=== PATIENT | male | born 1985 | race Caucasian/White ===

== ENCOUNTER 2016-11-22 19:48 | Emergency (ER) | payer OTHER | END 2016-11-22 20:03 | disposition home or self-care (01) | LOC: CED 19:48 | DX: K02.9 Dental caries, unspecified (principal); R00.0 Tachycardia, unspecified; F17.210 Nicotine dependence, cigarettes, uncomplicated | CPT/HCPCS: 99282 ==

== ENCOUNTER 2016-12-16 08:49 | Emergency (ER) | payer OTHER ==
--- NOTE | ~2016-12-16 | EKG ---
PATIENT: LAKSHMI CARMICHAEL UNIT #: [id number] Ventricular Rate: 102 BPM Atrial Rate: 102 BPM P-R Interval: 148 ms QRS Duration: 94 ms Q-T Interval: 338 ms QTC Calculation(Bezet): 440 ms P Norris: 50 degrees Calculated R Norris: 17 degrees Calculated T Norris: -14 degrees Diagnosis Line: Sinus tachycardia Diagnosis Line: Moderate voltage criteria for LVH, may be normal Diagnosis Line: variant Diagnosis Line: Inferior infarct , age undetermined Diagnosis Line: Abnormal ECG Diagnosis Line: When compared with ECG of 19-AUG-2016 08:29, Diagnosis Line: Inferior infarct is now Present Diagnosis Line: T wave inversion now evident in Inferior leads Diagnosis Line: Nonspecific T wave abnormality no longer evident Diagnosis Line: in Lateral leads Diagnosis Line: QT has shortened Diagnosis Line: Confirmed by KYUNG HANLEY MD ([id number]) on Diagnosis Line: 12/17/2016 8:37:05 AM INTERPRETING MD: TALON NASSAR
[2016-12-16 10:34] LABS: BASOPHIL# 0.1 X10e3 (0-0.3); BASOPHIL% 0.7 % (0-2.5); DIFF IND NO; EOSINOPHIL# 0.1 X10e3 (0-0.7); EOSINOPHIL% 0.9 % (0.0-7.0); HEMATOCRIT 42.8 % (38.0-50.0); HEMOGLOBIN 14.3 gm/dL (13.0-16.0); LYMPHOCYTE# 1.5 X10e3 (1.0-3.5); LYMPHOCYTE% 18.3 % (17.0-45.0); MEAN CELL VOLUME 96.4 FL (83-96); MEAN CORPUSCULAR HEMOGLOBIN 32.2 PG (28-34); MEAN CORPUSCULAR HGB CONC 33.4 g/dL (30-36); MEAN PLATELET VOLUME 7.5 FL (6.5-11.5); MONOCYTE# 0.8 X10e3 (0-1.0); MONOCYTE% 9.7 % (3.0-12.0); NEUTROPHIL# 5.7 X10e3 (1.5-7.1); NEUTROPHIL% 70.4 % (40-75); PLATELET COUNT 226 X10e3 (140-420); RED BLOOD COUNT 4.43 X10e (3.90-5.60); RED CELL DISTRIBUTION WIDTH 13.1 % (11.0-15.5); WHITE BLOOD COUNT 8.1 X10e3 (4.0-10.5)
[2016-12-16 11:02] LABS: ALBUMIN SERUM 4.2 g/dL (3.5-5.0); CALCIUM SERUM 8.8 mg/dL (8.4-10.2); GLOM FILT RATE Estimated 100.6 mL/min (>60); POTASSIUM 4.1 mmol/L (3.5-5.1); PROTEIN TOTAL SERUM 7.3 g/dL (6.0-8.3)
== END 2016-12-16 11:47 | disposition home or self-care (01) ==
LOC: CED 08:49
PROVIDERS: Nurse Practitioner
DX: S39.012A Strain of muscle, fascia and tendon of lower back, initial encounter (principal); R00.0 Tachycardia, unspecified; F41.9 Anxiety disorder, unspecified; F32.9 Major depressive disorder, single episode, unspecified; Z86.718 Personal history of other venous thrombosis and embolism; X50.9XXA Other and unspecified overexertion or strenuous movements or postures, initial encounter; Y92.9 Unspecified place or not applicable
CPT/HCPCS: 36415; 80053; 85025; 93005; 96360; 96372; 99284; J1885

== ENCOUNTER 2016-12-22 14:59 | Emergency (ER) | payer OTHER ==
[2016-12-22 16:50] LABS: BASOPHIL# 0.1 X10e3 (0-0.3); BASOPHIL% 0.7 % (0-2.5); EOSINOPHIL# 0.1 X10e3 (0-0.7); EOSINOPHIL% 1.9 % (0.0-7.0); HEMATOCRIT 40.2 % (38.0-50.0); HEMOGLOBIN 13.7 gm/dL (13.0-16.0); LYMPHOCYTE# 1.7 X10e3 (1.0-3.5); MEAN CELL VOLUME 94.9 FL (83-96); MEAN CORPUSCULAR HEMOGLOBIN 32.3 PG (28-34); MEAN PLATELET VOLUME 7.7 FL (6.5-11.5); MONOCYTE# 0.7 X10e3 (0-1.0); MONOCYTE% 9.4 % (3.0-12.0); NEUTROPHIL# 5.2 X10e3 (1.5-7.1); PLATELET COUNT 216 X10e3 (140-420); RED BLOOD COUNT 4.23 X10e (3.90-5.60); RED CELL DISTRIBUTION WIDTH 13.1 % (11.0-15.5); WHITE BLOOD COUNT 7.9 X10e3 (4.0-10.5)
[2016-12-22 16:59] LABS: DIFF IND NO
[2016-12-22 17:16] LABS: ALBUMIN SERUM 4.1 g/dL (3.5-5.0); ALKALINE PHOSPHATASE 55 U/L (32-92); ALT (SGPT) 22 U/L (10-40); AST (SGOT) 20 U/L (10-42); BILIRUBIN, DIRECT 0.1 mg/dL (0.0-0.2); BILIRUBIN,INDIRECT 0.8 mg/dL (0.0-0.9); BILIRUBIN,TOTAL 0.9 mg/dL (0.2-2.0); BLOOD UREA NITROGEN 11 mg/dL (9-23); BUN/CREATININE RATIO 12.22; CARBON DIOXIDE 24 mmol/L (22-31); CHLORIDE 106 mmol/L (100-111); CREATININE SERUM 0.9 mg/dL (0.6-1.4); GLOM FILT RATE Estimated 114.2 mL/min (>60); GLUCOSE FASTING 102 mg/dL (70-110); POTASSIUM 3.8 mmol/L (3.5-5.1); PROTEIN TOTAL SERUM 7.6 g/dL (6.0-8.3); SODIUM 138 mmol/L (135-145)
[2016-12-22 17:26] LABS: ALCOHOL BLOOD <5 mg/dL (0)
[2016-12-22 18:59] LABS: AMPHETAMINE POS (NEG); BARBITURATES NEG (NEG); BENZODIAZEPINES POS (NEG); COCAINE NEG (NEG); MARIJUANA NEG (NEG); OPIATES POS (NEG); TRICYCLIC ANTIDEPRESSANTS NEG (NEG); U METHADONE NEG (NEG)
== END 2016-12-22 21:15 | disposition home or self-care (01) ==
LOC: CED 14:59
PROVIDERS: Emergency Medicine
DX: F23 Brief psychotic disorder (principal); F17.200 Nicotine dependence, unspecified, uncomplicated
CPT/HCPCS: 80048; 80076; 80307; 85025; 96372; 99285; G0480; J3486

== ENCOUNTER 2016-12-22 20:00 | Inpatient (IN) | payer OTHER ==
--- NOTE | ~2016-12-22 | PN ---
Unit #: [id number] #: [id number] Patient: LAKSHMI CARMICHAEL [id number] [facility] [address] [place] [address] [id number] MR#: [id number] NAME: LAKSHMI CARMICHAEL ROOM: P254 Age: 31 Sex: M Admission Date: 12/22/2016 : 1985 Attending Physician: Mallory Jacobs M.D. Admitting Physician: Joanne Santiago NOTES SUBJECTIVE Mr. Carmichael is a 31-year-old white male who was seen today and chart was reviewed and case was discussed with the staff. He has been anxious and withdrawn and seclusive to himself. Meanwhile, he has been cooperative with the treatment recommendations and has been taking the medications and tolerating them fairly well with no reported side effects. MENTAL STATUS EXAMINATION A young white male, who was casually dressed with fair personal hygiene, appears to be in no acute distress or discomfort. He was awake and alert on interaction with intact orientation. His mood was anxious with congruent affect. He denies any suicidal or homicidal ideations. His insight and judgement remain slightly impaired. TREATMENT PLAN We will continue him on his current medications and treatment protocol. We will monitor his response to medications and make further adjustments as needed. We will continue to follow up. Dictated by... Joanne Santiago/mary TD: 12/30/2016 20:50 JOB #: [id number] SYLWIA STEPHENSON NOTES Page 1 of 1 X Mallory Jacobs MD PROGRESS NOTE
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
--- NOTE | ~2016-12-22 | PN ---
Unit #: [id number] #: [id number] Patient: LAKSHMI PITT [id number] [facility] [address] [place] [address] [id number] MR#: [id number] NAME: LAKSHMI PITT ROOM: P254 Age: 31 Sex: M Admission Date: 12/22/2016 : 1985 Attending Physician: Mallory Jacobs M.D. Admitting Physician: Mallory Jacobs M.D. Primary Care Physician: Norah Doctor Not In System [facility] PROGRESS NOTES DATE OF SERVICE: 12/30/2016 SUBJECTIVE Mr. Pitt is a 31-year-old white male with mood disorder and psychosis, who was seen today and chart was reviewed and the case was discussed with the staff. He has been anxious and withdrawn and rather seclusive to himself. Meanwhile, he has been cooperative with the treatment recommendations and has been taking the medications and tolerating them fairly well with no reported side effects. MENTAL STATUS EXAMINATION Young white male, who was casually dressed with fair personal hygiene, appears to be in no acute distress or discomfort. He was awake and alert on interaction with intact orientation. His mood was anxious with a congruent affect. He denies any suicidal or homicidal ideations and also denies any auditory or visual hallucinations. His insight and judgment remain slightly impaired. TREATMENT PLAN We will continue him on his current medications and treatment protocol and we will monitor his response to the medications and make further adjustments as needed. Dictated by... Joanne Santiago/mary TD: 12/30/2016 13:28 JOB #: [id number] [facility] PROGRESS NOTES Page 1 of 1 X Mallory Jacobs MD X PROGRESS NOTE
--- NOTE | ~2016-12-22 | HP ---
Unit #: [id number] #: [id number] Patient: SKINNY CARMICHAEL [id number] [place] [address] [id number] I MR#: [id number] NAME: SKINNY CARMICHAEL. ROOM: P254 Age: 31 Sex: M Admission Date: 12/22/2016 : 1985 Attending Physician: Mallory Jacobs M.D. Admitting Physician: Mallory Jacobs M.D. Primary Care Physician: Generic Doctor Not In System HISTORY AND PHYSICAL HISTORY OF PRESENT ILLNESS Skinny is a 31-year-old male admitted 12/22/[address] [place] [address] for suicidal ideation. PAST MEDICAL HISTORY Factor V Leiden PAST SURGICAL HISTORY None documented. SOCIAL HISTORY Smokes one pack of cigarettes daily, occasional beer use and occasional methamphetamine use. He is currently single living with his mother, aunt and two other roommates. FAMILY HISTORY Noncontributory. REVIEW OF SYSTEMS CONSTITUTIONAL: No fever or chills. HEENT: Denies any sore throat, ear pain or runny nose. CARDIOVASCULAR: Denies chest pain, irregular heart rhythm or palpitations. CHEST: Denies shortness of breath or cough. No hemoptysis. GASTROINTESTINAL: Denies nausea, vomiting, diarrhea or chronic constipation. ENDOCRINE: Denies history of increased thirst or urination. No recent significant weight loss or gain. GENITOURINARY: Denies dysuria, frequency, or hematuria. SKIN: Denies any rashes. HEMATOLOGIC: Denies history of increased bleeding or bruising. MUSCULOSKELETAL: Denies any hot, swollen joints. No generalized muscle pain. NEUROLOGIC: Denies problems with vision or speech. No frequent, severe headaches. No numbness, tingling or weakness in any extremities. Denies loss of bladder or bowel control. CURRENT MEDICATION Risperdal. ALLERGIES No known drug allergies. PHYSICAL EXAMINATION Unit #: [id number] #: [id number] Patient: SKINNY CARMICHAEL GENERAL: Alert, oriented, in no acute distress. VITAL SIGNS: Blood pressure 138/80, heart rate 114, respirations 20, temperature 98.6. HEIGHT: 6 foot 0 inches. WEIGHT: 220 pounds. SKIN: Warm and dry without rash or lesion. HEENT: Normocephalic. TMs not viewed. Oral and nasal passages clear. Conjunctivae clear. PERRLA. EOMs intact. NECK: Supple without lymphadenopathy or thyromegaly. HEART: Regular rate and rhythm without murmur. LUNGS: Clear. ABDOMEN: Soft, nontender, without masses or hepatosplenomegaly. : Not done. EXTREMITIES: No evidence of cyanosis, clubbing or edema. Moves all without focal deficit. NEUROLOGICAL: Grossly within normal limits. Cranial Nerves: II: Visual serrato are intact. III, IV AND : Extraocular movements are intact. Pupils are equal, round and reactive to light. V: Facial sensation is grossly normal. VII: Facial movements and expression are normal. VIII: Auditory acuity grossly intact. IX, X: Uvula is midline. Phonation is normal. XI: Patient shrugs shoulders and turns head normally. XII: Tongue protrudes in the midline. Sensory and Motor Function: Sensory and motor sensation is grossly normal. Motor: moves all extremities well. Coordination: Gait is normal. Deep Tendon Reflexes: Intact. IMPRESSION 1. Psychiatric admission. 2. Factor V Leiden. RECOMMENDATIONS Psychiatric, per psychiatrist. MEDICAL: I see no contraindications to participating in facility's activities. MEDICAL PROGNOSIS Good. MEDICAL CONDITION Stable. Dictated by... Violeta New/panfilo TD: 12/24/2016 02:57 JOB #: [id number] Unit #: [id number] #: [id number] Patient: SKINNY CARMICHAEL HISTORY AND PHYSICAL Page 1 of 1 X JENNIFER DUKES APRN X HISTORY AND PHYSICAL
--- NOTE | ~2016-12-22 | DS ---
Unit #: [id number] #: [id number] Patient: [facility] [id number] [facility] [address] [place] [address] [id number] I MR#: [id number] NAME: LAKSHMI CARMICHAEL ROOM: P254 Age: 31 Sex: M Admission Date: 12/22/2016 : 1985 Discharge Date: 01/03/2017 Attending Physician: Mallory Jacobs M.D. DISCHARGE SUMMARY IDENTIFYING DATA Mr. Badillo is a 31-year-old single white male who is a resident of [place], [place] and is known to us from previous encounter and was self-referred to the hospital on a voluntary basis. DISCHARGE DIAGNOSES Psychiatric: Schizoaffective disorder, bipolar type, most recent episode depressed, recurrent, moderate, with psychosis; methamphetamine dependence, moderate. Medical: Factor V deficiency. Stressors: Mild psychosocial stressors. HISTORY OF PRESENT ILLNESS Please see initial psychiatric evaluation for details. PAST PSYCHIATRIC HISTORY Please see initial psychiatric evaluation for details. PAST MEDICAL HISTORY Please see initial psychiatric evaluation for details. HOSPITAL COURSE The patient was admitted to the adult psychiatric unit at [facility] emily Chavarria and was oriented to the hospital environment. Routine p.r.n. medications were initiated, and he was started back on his home medications. However, he was seen to be acutely psychotic, very withdrawn, seclusive, and isolated to himself. Reporting increasing depression and constantly reporting hallucinations and suicidal ideations and in addition to his regular medications, we had to give him p.r.n. Thorazine quite often to cut down his psychosis and agitation and Risperdal then was increased to 3 mg b.i.d. with a total of 6 mg a day and he was closely monitored. He was polite and pleasant for the most part, however, was seen to be cooperative with treatment recommendation as he was taking the medications and was tolerating them fairly well, though was not seen to be socializing or interacting very much and his personal hygiene was compromised as well. However, he was able to show a decent therapeutic response to the medications with improvement in his depression and psychosis and was denying any suicidal ideations, intent, or plan and was not seen to be a danger to self or anyone else, and as such, it was decided that he will be discharged home and will continue treatment on an outpatient basis. DISCHARGE MEDICATIONS Wellbutrin XL 300 mg in the morning for depression and Risperdal 3 mg Unit #: [id number] #: [id number] Patient: LAKSHMI CARMICHAEL Gabriel singh for psychosis. DISCHARGE CONDITION Stable. PROGNOSIS Fair. Dictated by... Joanne Santiago/mary TD: 01/03/2017 07:05 JOB #: [id number] DISCHARGE SUMMARY Page 1 of 1 X Mallory Jacobs MD X DISCHARGE SUMMARY
--- NOTE | ~2016-12-22 | PN ---
Unit #: [id number] #: [id number] Patient: LAKSHMI PITT [id number] [facility] [address] [place] [address] [id number] MR#: [id number] NAME: LAKSHMI PITT ROOM: P254 Age: 31 Sex: M Admission Date: 12/22/2016 : 1985 Attending Physician: Mallory Jacobs M.D. Admitting Physician: Mallory Jacobs M.D. Primary Care Physician: Norah Doctor Not In System [facility] PROGRESS NOTES DATE OF SERVICE 12/28/2016 DISCUSSION Mr. Pitt is a 31-year-old white male who was seen today. Chart was reviewed and case was discussed with the staff. He has been anxious, withdrawn, and rather seclusive to himself. Meanwhile, he has been cooperative with the treatment recommendations and has been taking the medications and tolerating them fairly well with no reported side effects. MENTAL STATUS EXAMINATION Young white male who is casually dressed with fair personal hygiene, appears to be in no acute distress or discomfort. The patient was awake and alert with intact orientation. His mood is anxious with congruent affect. He denies any suicidal or homicidal ideations. His insight and judgment remain slightly impaired. TREATMENT PLAN 1. We will continue him on his current treatment protocol. We will monitor his response and make further adjustments as needed. 2. We will continue to follow up. Dictated by... Mallory Jacobs M.D. IAA/bzg TD: 01/01/2017 15:06 JOB #: [id number] [facility] PROGRESS NOTES Page 1 of 1 X Mallory Jacobs MD PROGRESS NOTE
--- NOTE | ~2016-12-22 | PN ---
Unit #: [id number] #: [id number] Patient: LAKSHMI CARMICHAEL [id number] [facility] [address] [place] [address] [id number] I MR#: [id number] NAME: LAKSHMI CARMICHAEL ROOM: P254 Age: 31 Sex: M Admission Date: 12/22/2016 : 1985 Attending Physician: Mallory Jacobs M.D. Admitting Physician: Joanne Santiago NOTES DATE OF SERVICE: 12/27/2016 SUBJECTIVE Mr. Carmichael is a 31-year-old white male who was seen today and chart was reviewed, and case was discussed with the staff who reports the patient has been seclusive to himself. When approached, the patient reports persistent paranoia, anxiety, and delusional behavior. Meanwhile, he has been taking the medications and tolerating them fairly well with no reported side effects. MENTAL STATUS EXAMINATION Young white male who was casually dressed with fair personal hygiene, appears to be in no acute distress or discomfort. He was awake and alert on interaction with intact orientation. His mood was anxious with a congruent affect. He denies any suicidal or homicidal ideations, and also denies any auditory or visual hallucinations. His insight and judgment remain slightly impaired. TREATMENT PLAN 1. We will continue him on his current medications and treatment protocol. We will monitor his response to medications and make further adjustments as needed. We will recommend increasing the Risperdal to 3 mg twice a day. 2. We will continue to follow up. Dictated by... Joanne Santiago/mary TD: 12/28/2016 13:25 JOB #: [id number] Unit #: [id number] #: [id number] Patient: LAKSHMI CARMICHAEL SYLWIA STEPHENSON NOTES Page 1 of 1 X Mallory Jacobs MD PROGRESS NOTE
--- NOTE | ~2016-12-22 | PN ---
Unit #: [id number] #: [id number] Patient: LAKSHMI PITT [id number] [facility] [address] [place] [address] [id number] MR#: [id number] NAME: LAKSHMI PITT ROOM: P254 Age: 31 Sex: M Admission Date: 12/22/2016 : 1985 Attending Physician: Mallory Jacobs M.D. Admitting Physician: Mallory Jacobs M.D. Primary Care Physician: Norah Doctor Not In System [facility] PROGRESS NOTES DATE 12/25/2016 DISCUSSION Mr. Pitt is a 31-year-old, white male who was seen today and chart was reviewed and case was discussed with the staff. He has been anxious, withdrawn though has not shown any agitation, irritability and he has been cooperative with treatment recommendations. He has been taking medications and tolerating them fairly well with no reported side effects. MENTAL STATUS EXAM Young white male who was casually dressed with fair personal hygiene, appears to be in no acute distress or discomfort. He was awake and alert on interaction with intact orientation. His mood was anxious with congruent affect. His speech was slow and restricted in content. His thought processes were disorganized with some looseness of associations and flight of ideas and paranoid ideations and delusional behavior. His insight and judgement remains significantly impaired. TREATMENT PLAN 1. We will continue him on his current medications and treatment protocol. We will monitor his response to the medication and make further adjustments as needed. 2. We will continue to follow up. Dictated by... Joanne Santiago/panfilo TD: 12/25/2016 22:47 JOB #: [id number] Unit #: [id number] #: [id number] Patient: LAKSHMI PITTOPAL PROGRESS NOTES Page 1 of 1 X Mallory Jacobs MD PROGRESS NOTE
--- NOTE | ~2016-12-22 | PN ---
Unit #: [id number] #: [id number] Patient: LAKSHMI CARMICHAEL [id number] [facility] [address] [place] [address] [id number] MR#: [id number] NAME: LAKSHMI CARMICHAEL ROOM: P254 Age: 31 Sex: M Admission Date: 12/22/2016 : 1985 Attending Physician: Mallory Jacobs M.D. Admitting Physician: Mallory Jacobs M.D. Primary Care Physician: Generic Doctor Not In System [facility] PROGRESS NOTES DATE OF SERVICE: 12/24/2016 SUBJECTIVE The patient is a 31-year-old white male with mood disorder and psychosis, who was seen today and chart was reviewed, and case was discussed with the staff. He remains anxious, agitated, irritable, aggressive, and has been reporting some auditory hallucinations and p.r.n. Thorazine has been given though his Risperdal has been initiated as well. MENTAL STATUS EXAMINATION Young white male, who was casually dressed with fair personal hygiene, appears to be in no acute distress or discomfort. He was awake and alert on interaction with intact orientation. His mood was anxious with a congruent affect, but denies any suicidal or homicidal ideations and also denies any auditory or visual hallucinations. His insight and judgment remain slightly impaired. TREATMENT PLAN 1. We will continue on his medications and treatment protocol. We will monitor his response to medications and make further adjustments as needed. 2. We will continue to follow up. Dictated by... Joanne Santiago/mary TD: 12/24/2016 12:01 JOB #: [id number] [facility] PROGRESS NOTES Page 1 of 1 X Mallory Jacobs MD PROGRESS NOTE
--- NOTE | ~2016-12-22 | PN ---
Unit #: [id number] #: [id number] Patient: LAKSHMI PITT [id number] [facility] [address] [place] [address] [id number] I MR#: [id number] NAME: LAKSHMI PITT ROOM: P254 Age: 31 Sex: M Admission Date: 12/22/2016 : 1985 Attending Physician: Mallory Jacobs M.D. Admitting Physician: Mallory Jacobs M.D. Primary Care Physician: Generic Doctor Not In System [facility] PROGRESS NOTES DATE OF SERVICE 01/01/2017 DISCUSSION Mr. Pitt is a 31-year-old white male with mood disorder and psychosis who was seen today. Chart was reviewed and case was discussed with the staff. He has been anxious, withdrawn, and has not shown any agitation or irritability and has been cooperative with the treatment recommendations and has been taking the medications and tolerating them fairly well. MENTAL STATUS EXAMINATION Young white male who is casually dressed with fair personal hygiene, appears to be in no acute distress or discomfort. He was awake and alert on interaction with intact orientation. His mood is anxious with congruent affect. He denies any suicidal or homicidal ideations. His insight and judgment remain slightly impaired. TREATMENT PLAN 1. We will continue him on his current treatment protocol. We will monitor his response to the medications and make further adjustments as needed. 2. We will continue to follow up. Dictated by... Mallory Jacobs M.D. IAA/bzg TD: 01/02/2017 07:31 JOB #: [id number] [facility] PROGRESS NOTES Page 1 of 1 X Mallory Jacobs MD PROGRESS NOTE
--- NOTE | ~2016-12-22 | PN ---
Unit #: [id number] #: [id number] Patient: LAKSHMI PITT [id number] [facility] [address] [place] [address] [id number] I MR#: [id number] NAME: LAKSHMI PITT ROOM: P254 Age: 31 Sex: M Admission Date: 12/22/2016 : 1985 Attending Physician: Mallory Jacobs M.D. Admitting Physician: Mallory Jacobs M.D. Primary Care Physician: Norah Doctor Not In System [facility] PROGRESS NOTES DATE OF SERVICE 12/26/2016 DISCUSSION Mr. Pitt is a 31-year-old white male who was seen today. Chart was reviewed and case was discussed with the staff. He has been anxious, withdrawn, irritable, impulsive, agitated, and seclusive to himself. Reports persistent depressive symptom. Meanwhile, he has been taking the medications and tolerating them fairly well. MENTAL STATUS EXAMINATION Young white male who is casually dressed with fair personal hygiene, appears to be in no acute distress or discomfort. The patient was awake and alert on interaction with intact orientation. His mood is anxious with congruent affect. He reports having suicidal ideations as well as auditory hallucinations. His insight and judgment remain significantly impaired. TREATMENT PLAN 1. We will continue him on his current treatment protocol. We will monitor his response to the medications and make further adjustments as needed. 2. We will continue to follow up. Dictated by... Mallory Jacobs M.D. IAA/bzg TD: 12/27/2016 11:52 JOB #: [id number] Unit #: [id number] #: [id number] Patient: LAKSHMI PITT SYLWIA PROGRESS NOTES Page 1 of 1 X Mallory Jacobs MD PROGRESS NOTE
--- NOTE | ~2016-12-22 | PN ---
Unit #: [id number] #: [id number] Patient: LAKSHMI PITT [id number] [facility] [address] [place] [address] [id number] I MR#: [id number] NAME: LAKSHMI PITT ROOM: P254 Age: 31 Sex: M Admission Date: 12/22/2016 : 1985 Attending Physician: Mallory Jacobs M.D. Admitting Physician: Mallory Jacobs M.D. Primary Care Physician: Norah Doctor Not In System [facility] PROGRESS NOTES DATE 01/02/2017 DISCUSSION Mr. Pitt is a 31-year-old, white man who was seen today and chart was reviewed and case was discussed with the staff. He has been anxious, withdrawn though has not shown any agitation, irritability and he has been cooperative with the treatment recommendations. He has been taking the medication and tolerating them fairly well with no reported side effects. MENTAL STATUS EXAM Young white male who was casually dressed with fair personal hygiene, appears to be in no acute distress or discomfort. He was awake and alert on interaction with intact orientation. His mood was anxious with congruent affect. He denies any suicidal or homicidal ideation. Also, denies any auditory or visual hallucinations. His insight and judgement remains slightly impaired. TREATMENT PLAN 1. We will continue him on his current medications and treatment protocol. We will monitor his response to the medication and make further adjustments as needed. 2. We will continue to follow up. Dictated by... Joanne Santiago/panfilo TD: 01/03/2017 02:35 JOB #: [id number] Unit #: [id number] #: [id number] Patient: LAKSHMI PITT PROGRESS NOTES Page 1 of 1 X Mallory Jacobs MD PROGRESS NOTE
--- NOTE | ~2016-12-22 | PN ---
Unit #: [id number] #: [id number] Patient: LAKSHMI PITT [id number] [facility] [address] [place] [address] [id number] I MR#: [id number] NAME: LAKSHMI PITT ROOM: P254 Age: 31 Sex: M Admission Date: 12/22/2016 : 1985 Attending Physician: Mallory Jacobs M.D. Admitting Physician: Mallory Jacobs M.D. Primary Care Physician: Norah Doctor Not In System [facility] PROGRESS NOTES DATE OF SERVICE 12/28/2016 DISCUSSION Mr. Pitt is a 31-year-old white male who was seen today. Chart was reviewed and case was discussed with the staff. He has been anxious, withdrawn, depressed, and seclusive to himself and reports not feeling safe and still having depression, anxiety, suicidal thoughts and auditory hallucinations. His medications were adjusted yesterday as he has been taking the medications regularly and is tolerating them fairly well but has not been able to show a therapeutic response. MENTAL STATUS EXAMINATION Young white male who is casually dressed with fair personal hygiene, appears to be in no acute distress or discomfort. The patient was awake and alert with impaired attention and concentration. His mood is anxious with congruent affect. His speech is slow and restricted in content. He denies any suicidal or homicidal ideations and also denies any auditory or visual hallucinations. His insight and judgment remain slightly impaired. TREATMENT PLAN 1. We will continue him on his current treatment protocol. We will monitor his response and make further adjustments as needed. 2. We will continue to follow up. Dictated by... Joanne Santiago/travisg TD: 12/29/2016 08:42 JOB #: [id number] Unit #: [id number] #: [id number] Patient: LAKSHMI PITT PROGRESS NOTES Page 1 of 1 X Mallory Jacobs MD PROGRESS NOTE
== END 2017-01-03 11:30 | disposition home or self-care (01) | DRG 885 ==
LOC: P2L 22:03
DX: F25.0 Schizoaffective disorder, bipolar type (principal); D68.51 Activated protein C resistance; F31.32 Bipolar disorder, current episode depressed, moderate; F29 Unspecified psychosis not due to a substance or known physiological condition; F15.20 Other stimulant dependence, uncomplicated; R45.851 Suicidal ideations; F17.210 Nicotine dependence, cigarettes, uncomplicated

== ENCOUNTER 2017-01-11 10:38 | Inpatient (IN) | payer OTHER ==
--- NOTE | ~2017-01-11 | DS ---
Unit #: [id number] #: [id number] Patient: LAKSHMI CARMICHAEL [id number] [address] [address] [id number] I MR#: [id number] NAME: LAKSHMI CARMICHAEL ROOM: [facility] Age: 31 Sex: M Admission Date: 01/11/2017 : 1985 Discharge Date: Attending Physician: Sayra James M.D. Primary Care Physician: No Primary Care Physician DISCHARGE SUMMARY DISCHARGE DIAGNOSES 1. Intentional Risperdal overdose. 2. Suicidal ideation. 3. Hypotension secondary to overdose. 4. Hypokalemia. 5. History of Factor V Leiden deficiency with a history of pulmonary embolism, not on any anticoagulation. 6. Substance abuse. 7. Smoking. 8. Schizophrenia. 9. Bipolar. 10. History of suicidal ideation and overdose in the past. CONSULTATION Dr. Bernard. PROCEDURES None. LAB DATA CAT scan of the head is negative. Sodium 139, potassium 3.6, creatinine 0.9. Liver enzymes normal. WBC 8.5, hemoglobin 14.0, platelets 201. Blood cultures negative. Magnesium 2.2. Urinalysis shows RBC 5-10, no infection. Urine tox screen positive for benzodiazepines and opiates. ALLERGIES None. DISCHARGE MEDICATIONS None. HOSPITALIZATION COURSE 31-year-old admitted because of Risperdal overdose. Risperdal overdose, intentional, with suicidal ideation with history of bipolar and schizophrenia: Patient was kept on 72 hour hold with a Unit #: [id number] #: [id number] Patient: LAKSHMI CARMICHAEL sitter. Currently, patient is alert and oriented x3. Patient received charcoal in ER and IV fluids. Currently stable. Medically stable to go to [facility]. Patient will be seen by [facility] staff and transferred to [facility]. Hypotension secondary to overdose: Patient received IV fluids, currently resolved. Both eye deviation to the right, most likely psychiatric related: CAT scan of the head is negative. Patient is moving eyes normally if distracted. History of bipolar and schizophrenia: Treatment as per Dr. Bernard. Hold off on Risperdal for now because overdose. Regular diet. Patient medically stable to go to [facility]. DC to [facility]. Dictated by... Joanne Long TD: 01/13/2017 12:15 JOB #: [id number] DISCHARGE SUMMARY Page 1 of 1 X Sayra James MD X DISCHARGE SUMMARY
--- NOTE | ~2017-01-11 | CO ---
Unit #: [id number] #: [id number] Patient: LAKSHMI CARMICHAEL [id number] [address] [place], [place] [address] [id number] I MR#: [id number] NAME: LAKSHMI CARMICHAEL ROOM: [facility] Age: 31 Sex: M Admission Date: 01/11/2017 : 1985 Attending Physician: Bree Bernabe M.D. Primary Care Physician: Primary Care Physician No Consultation Date: 01/12/2017 CONSULTATION REPORT INDICATION FOR CONSULT Overdose. HISTORY OF PRESENT ILLNESS Mr. Richard is a 31-year-old schizophrenic who presented with an intentional overdose. He self admits that this was an intentional suicide attempt, stating he took 60 Risperdal and nothing else. He was admitted to the ICU for close observation and this morning, he is awake and alert with no distress. He denies any shortness of breath or pain anywhere. PAST MEDICAL HISTORY Positive for factor V Leiden deficiency, PE, schizophrenia and substance abuse. Has had past admissions for suicidal ideation and overdose. SOCIAL HISTORY Positive for tobacco abuse. ALLERGIES No known drug allergies. HOME MEDICATIONS Include Risperdal, Lexapro and gabapentin. REVIEW OF SYSTEMS Denies any headache. Denies any visual complaints. Denies any changes in hearing. Denies any sore throat. Denies any adenopathy. Denies any chest pain. Denies any shortness of breath. Denies any dysuria. Denies any diarrhea. Denies any abdominal pain. Denies any bleeding. Denies any muscle weakness. Denies any swelling. PHYSICAL EXAMINATION VITAL SIGNS: Temperature 97.8, pulse 76, respirations 14, blood pressure 127/98, sats 97% on room air. GENERAL: The patient is awake and alert, no acute distress. HEENT: Pupils are equal and reactive to light stimulus. Extraocular motion intact. Oral mucosa pink and moist without lesion. NECK: Trachea midline. No thyromegaly. No cervical or supraclavicular adenopathy. LUNGS: Clear to auscultation bilaterally without wheezes, rhonchi, or rales. CARDIAC: Regular rate and rhythm. S1 and S2 are auscultated without murmur. ABDOMEN: Soft, nontender, nondistended. Positive bowel sounds. No hepatomegaly. Unit #: [id number] #: [id number] Patient: LAKSHMI CARMICHAEL EXTREMITIES: Moves all 4 extremities. Good strength and tone. No cyanosis, clubbing, or edema. Distal pulses are intact. Positive cap refill. DIAGNOSTIC STUDIES LABORATORY RESULTS: His CMP this morning is within normal limits with the exception of BUN of 7 and calcium of 8.3. CBC; white count 7.9, hematocrit 41, platelets 171. IMAGING STUDIES: Chest x-ray did show no acute disease. IMPRESSION 1. Intentional overdose. 2. Suicidal ideation. Recommend psych eval to consider indication for inpatient psychiatric management for ongoing care. Consider transfer to the floor for further observation and management. Follow and replace electrolytes per ICU protocol. Dictated by... Saravanan Barr M.D. JAVIER/mary TD: 01/12/2017 07:56 JOB #: [id number] CONSULTATION REPORT Page 1 of 1 X Saravanan Barr MD X CONSULTATION REPORT
--- NOTE | ~2017-01-11 | CT71 ---
[facility] A Service [facility] RADIOLOGY TEXT RESULTS PATIENT: LAKSHMI CARMICHAEL LOCATION: [facility] 317-01 : [birth year] UNIT #: [id number] AGE: [address]: Sayra James MD SEX: M ORDER DR: [id number] [facility]. [place], [place] [address] [id number] I MR#: [id number] Acc #: [id number] NAME: LAKSHMI CARMICHAEL : 1985 SEX: M STUDY DATE/TIME: 01/12/2017 10:30 UNIT: [address] ROOM: [facility] STUDY DESCRIPTION: CT Head Wo Contrast Attending Physician: Bree Bernabe M.D. Ordering Physician: Sayra James M.D. Primary Care Physician: No Primary Care Physician MEDICAL IMAGING REPORT This report is preliminary unless electronic signature is present EXAM CT brain without contrast media. HISTORY SUPPLIED Drug overdose on 01/21/17. Eye deviation for 1 hour. TECHNIQUE Axial imaging of the brain was performed without contrast media. This CT exam was performed with one or more of the following radiation dose reduction techniques: automatic exposure control, adjustment of mA and/or kV according to patient size, and iterative reconstruction. FINDINGS Ventricular size and configuration is normal. No intra or extraaxial mass lesions, fluid collections or mass effect are seen. No focal areas of low attenuation or evidence of acute hemorrhage. There is evidence of chronic ethmoid mucosal disease. CONCLUSION 1. Negative noncontrast CT of the brain. 2. Chronic ethmoid mucosal disease. Dictated by... Karson James M.D. THIS IS AN ELECTRONICALLY VERIFIED REPORT Karson James M.D. at 01/13/2017 9:17 AM Herminio TD: 01/12/2017 15:38 JOB #: [id number] [facility] A [facility] RADIOLOGY TEXT RESULTS PATIENT: LAKSHMI CARMICHAEL LOCATION: [facility] 317-01 [facility] [id number] : [birth year] UNIT #: [id number] AGE: [address]: Sayra James MD SEX: M ORDER DR: MEDICAL IMAGING REPORT Page 1 of 1 COPY
--- NOTE | ~2017-01-11 | CR72 ---
[facility] A Service of [facility] RADIOLOGY TEXT RESULTS PATIENT: LAKSHMI CARMICHAEL LOCATION: [facility] 317-01 : [birth year] UNIT #: [id number] AGE: [address]: Sayra James MD SEX: M ORDER DR: [id number] [facility] [address] [facility]. [place], [place] [address] [id number] I MR#: [id number] Acc #: [id number] NAME: LAKSHMI CARMICHAEL : 1985 SEX: M STUDY DATE/TIME: 01/11/2017 16:31 UNIT: [facility] ROOM: [id number] STUDY DESCRIPTION: CR Chest Single View Portable Attending Physician: Bree Bernabe M.D. Ordering Physician: Bree Bernabe M.D. Primary Care Physician: No Primary Care Physician MEDICAL IMAGING REPORT This report is preliminary unless electronic signature is present EXAM AP portable chest DATE: 01/11/2017 at 16:41 HISTORY 31-year-old male with cough. Overdose. Symptoms began 01/11/2017. COMPARISON AP portable chest 08/20/2016 FINDINGS Clear lungs. Normal heart size. No pleural effusion or pneumothorax. No acute osseous abnormality. IMPRESSION No acute cardiopulmonary findings. Dictated by... Brooklyn Allen M.D. THIS IS AN ELECTRONICALLY VERIFIED REPORT Brooklyn Allen M.D. at 01/14/2017 9:29 AM SACHIN/mirta TD: 01/11/2017 21:06 JOB #: [id number] MEDICAL IMAGING REPORT Page 1 of 1 COPY
--- NOTE | ~2017-01-11 | EKG ---
PATIENT: LAKSHMI CARMICHAEL UNIT #: [id number] Ventricular Rate: 151 BPM Atrial Rate: 151 BPM P-R Interval: 126 ms QRS Duration: 88 ms Q-T Interval: 328 ms QTC Calculation(Bezet): 519 ms P Troy: 65 degrees Calculated R Troy: 41 degrees Calculated T Troy: 68 degrees Diagnosis Line: Sinus tachycardia Diagnosis Line: Nonspecific T wave abnormality Diagnosis Line: Abnormal ECG Diagnosis Line: When compared with ECG of 16-DEC-2016 10:27, Diagnosis Line: Criteria for Inferior infarct are no longer Diagnosis Line: Present Diagnosis Line: T wave inversion no longer evident in Inferior Diagnosis Line: leads Diagnosis Line: Nonspecific T wave abnormality now evident in Diagnosis Line: Lateral leads Diagnosis Line: Confirmed by JULIO PAZ MD ([id number]) on 01/13/2017 Diagnosis Line: 4:25:07 PM INTERPRETING MD: BRANDI NASSAR
--- NOTE | ~2017-01-11 | HP ---
Unit #: [id number] #: [id number] Patient: LAKSHMI CARMICHAEL [id number] [address] [place], [place] [address] [id number] MR#: [id number] NAME: LAKSHMI CARMICHAEL ROOM: Age: 31 Sex: M Admission Date: 01/11/2017 : 1985 Attending Physician: Milvia Caraballo M.D. Primary Care Physician: No Primary Care Physician HISTORY AND PHYSICAL CHIEF COMPLAINT Overdose. HISTORY OF PRESENT ILLNESS The patient is a 31-year-old male with a past medical history of factor V Leiden deficiency, PE, schizophrenia and substance abuse. He presented to the emergency department for evaluation of the above. History is obtained from chart review and discussion with the emergency room staff. The patient provided some history as well. The patient apparently took 60 Risperdal tablets of unknown strength one hour prior to admission. He was having suicidal ideations and depression. Of note, the patient was hospitalized at [facility] 12/22/2016 through 01/03/2017 for suicidal ideation. Upon arrival in the emergency department the patient's initial pulse and blood pressures were 147 and 90/58 respectively. Oxygen saturation was 98% on room air. Tox screen positive for benzodiazepines and opiates. He was given 50 g of charcoal as well as 1 liter of normal saline and 4 mg of Zofran. Additionally he received 150 cc of magnesium citrate. The poison center was contacted and recommended admission due to long half-life of Risperdal. Signs and symptoms include elevated heart rate, hypotension, prolonged QTC, seizures, respiratory depression. He is being admitted to [facility] for evaluation and further treatment. PAST MEDICAL HISTORY 1. Admission to [facility] 12/22/2016 through 01/03/2017 for suicidal ideation. 2. Admission to [facility] 08/19/2016 for Wellbutrin overdose. 3. Schizophrenia. 4. Factor V Leiden deficiency with history of PE. PAST SURGICAL HISTORY None. SOCIAL HISTORY The patient lives with his Dad. He smokes a pack of cigarettes daily. He occasionally drinks. There is a history of methamphetamine use per record review. ALLERGIES No known drug allergies. Unit #: [id number] #: [id number] Patient: LAKSHMI CARMICHAEL HOME MEDICATIONS 1. Risperdal 3 mg b.i.d. 2. Lexapro 20 mg daily. 3. Gabapentin 800 mg t.i.d. p.r.n. REVIEW OF SYSTEMS A complete review of systems was negative except as indicated in history of present illness. The patient does report nausea. He denies any vomiting. He states that he has had an occasional cough. PHYSICAL EXAMINATION GENERAL: The patient is somewhat lethargic, but wakes to physical stimuli. VITALS: Temperature 97.1, pulse 147, respiratory rate 18, blood pressure 90/58, most recently 91/53, oxygen saturation 98% on room air. HEENT: The head is atraumatic. There is black residue on the lips. Mucous membranes are dry. NECK: Supple. Trachea midline. LUNGS: Clear to auscultation bilaterally with no increased work of breathing. HEART: Tachycardic, just a little over 100. ABDOMEN: Soft and nontender with bowel sounds present in all four quadrants. EXTREMITIES: Nontender with no pedal edema. NEUROLOGIC: The patient is moving all extremities. He follows commands. PSYCHIATRIC: The patient is somewhat disheveled. He has a flat affect. SKIN: Skin of examined areas is warm and dry. DIAGNOSTIC STUDIES LABORATORY: Notable for urine tox screen positive for benzodiazepines and opiates. CBC is completely normal. INR is 1.1. CMP notable for sodium 134, potassium 3.4, CO2 20. Anion gap 11. Glucose 180. Tylenol, salicylate and alcohol levels are negative. Urinalysis notable for trace leukocyte esterase, 1+ protein, 5-10 red blood cells. CARDIOVASCULAR: EKG shows sinus tachycardia with a rate of 151 beats per minute. ASSESSMENT The patient is a 31-year-old male with 1. Intensional Risperdal overdose. He received charcoal in the emergency department. The patient has had suicide attempts in the past. 2. Hypotension. The patient received 1 liters of normal saline in the emergency department. Most recent blood pressure was 91/53. 3. Hypokalemia. 4. History of Factor V Leiden deficiency with history of PE. 5. Schizophrenia. 6. Substance abuse. 7. Tobacco abuse. PLAN 1. Admit to the ICU. 2. N.p.o. 3. Normal saline at 125 cc an hour. 4. Sitter. 5. 72-hour hold. 6. Consult Dr. Bernard regarding overdose. Unit #: [id number] #: [id number] Patient: LAKSHMI CARMICHAEL 7. Monitor blood pressure closely. 8. Blood cultures times two. 9. Chest x-ray for evaluation of cough. 10. Heck magnesium level. 11. Potassium/magnesium protocol. 12. Consult Dr. Benjamin regarding ICU admission. 13. Protonix for GI prophylaxis. 14. SCDs for DVT prophylaxis. 15. P.r.n. Zofran. Thirty-one minutes critical care time spent in the care of this patient (3:30 to 4:1 p.m.). Dictated by Joanne Ribera/tamica TD: 01/11/2017 16:21 JOB #: [id number] HISTORY AND PHYSICAL Page 1 of 1 X Bree Bernabe MD HISTORY AND PHYSICAL
[2017-01-11 11:29] LABS: BASOPHIL# 0.1 X10e3 (0-0.3); BASOPHIL% 0.6 % (0-2.5); EOSINOPHIL# 0.1 X10e3 (0-0.7); EOSINOPHIL% 1.2 % (0.0-7.0); HEMATOCRIT 45.1 % (38.0-50.0); LYMPHOCYTE# 1.4 X10e3 (1.0-3.5); LYMPHOCYTE% 16.3 % (17.0-45.0); MEAN CELL VOLUME 95.7 FL (83-96); MEAN CORPUSCULAR HEMOGLOBIN 31.9 PG (28-34); MEAN CORPUSCULAR HGB CONC 33.4 g/dL (30-36); MEAN PLATELET VOLUME 7.4 FL (6.5-11.5); MONOCYTE# 0.6 X10e3 (0-1.0); MONOCYTE% 6.4 % (3.0-12.0); NEUTROPHIL# 6.5 X10e3 (1.5-7.1); NEUTROPHIL% 75.5 % (40-75); PLATELET COUNT 208 X10e3 (140-420); RED BLOOD COUNT 4.71 X10e (3.90-5.60); RED CELL DISTRIBUTION WIDTH 12.9 % (11.0-15.5); WHITE BLOOD COUNT 8.7 X10e3 (4.0-10.5)
[2017-01-11 11:30] LABS: DIFF IND NO
[2017-01-11] MEDS ORDERED: PATIENT'S PHARMACY (11:32)
[2017-01-11] MEDS ORDERED: GABAPENTIN800 MG PO (11:33)
[2017-01-11] MEDS ORDERED: RISPERIDONE PO (11:33)
[2017-01-11] MEDS ORDERED: LEXAPRO20 MG PO (11:33)
[2017-01-11 11:56] LABS: INR 1.1; PARTIAL THROMBOPLASTIN TIME 22.9 SECONDS (23.5-31.3); PROTHROMBIN TIME (PATIENT) 11.1 SECONDS (9.6-11.5)
[2017-01-11 12:17] LABS: ALBUMIN SERUM 4.1 g/dL (3.5-5.0); ALKALINE PHOSPHATASE 55 U/L (32-92); ALT (SGPT) 21 U/L (10-40); AST (SGOT) 25 U/L (10-42); BILIRUBIN, DIRECT 0.1 mg/dL (0.0-0.2); BILIRUBIN,TOTAL 1.1 mg/dL (0.2-2.0); BLOOD UREA NITROGEN 10 mg/dL (9-23); BUN/CREATININE RATIO 9.09; CALCIUM SERUM 8.6 mg/dL (8.4-10.2); CARBON DIOXIDE 20 mmol/L (22-31); CHLORIDE 103 mmol/L (100-111); CREATININE SERUM 1.1 mg/dL (0.6-1.4); GLOM FILT RATE Estimated 89.6 mL/min (>60); GLUCOSE FASTING 180 mg/dL (70-110); POTASSIUM 3.4 mmol/L (3.5-5.1); PROTEIN TOTAL SERUM 6.9 g/dL (6.0-8.3); SALICYLATE <4.0 mg/dL; SODIUM 134 mmol/L (135-145)
[2017-01-11 12:18] LABS: ACETAMINOPHEN <10 ug/mL; ALCOHOL BLOOD <5 mg/dL ([, 0])
[2017-01-11 13:47] LABS: URINE SOURCE CLEAN CATCH
[2017-01-11 13:57] LABS: URINE APPEARANCE CLOUDY; URINE BLOOD NEG (NEG); URINE COLOR DK YELLOW; URINE GLUCOSE NEG (NEG); URINE KETONE TRACE (NEG); URINE LEUKOCYTE ESTERASE TRACE (NEG); URINE NITRATE NEG (NEG); URINE PH 5.5 (5-8); URINE PROTEIN 1+ (NEG); URINE SPECIFIC GRAVITY 1.029 (1.003-1.035)
[2017-01-11 14:00] LABS: URINE BACTERIA AUWI NEG (NEGATIVE); URINE SQUAMOUS EPITHELIAL CELL FEW /[HPF]
[2017-01-11 14:07] LABS: AMPHETAMINE NEG (NEG); BARBITURATES NEG (NEG); BENZODIAZEPINES POS (NEG); COCAINE NEG (NEG); MARIJUANA NEG (NEG); OPIATES POS (NEG); TRICYCLIC ANTIDEPRESSANTS NEG (NEG); U METHADONE NEG (NEG); URINE BILIRUBIN NEG (NEG)
[2017-01-11 14:08] LABS: CULTURE INDICATED? NO
[2017-01-12 04:07] LABS: BASOPHIL% 0.4 % (0-2.5); DIFF IND NO; EOSINOPHIL# 0.2 X10e3 (0-0.7); HEMATOCRIT 41.3 % (38.0-50.0); HEMOGLOBIN 13.7 gm/dL (13.0-16.0); LYMPHOCYTE% 38.7 % (17.0-45.0); MEAN CELL VOLUME 96.2 FL (83-96); MEAN CORPUSCULAR HEMOGLOBIN 31.9 PG (28-34); MEAN CORPUSCULAR HGB CONC 33.2 g/dL (30-36); MEAN PLATELET VOLUME 7.8 FL (6.5-11.5); MONOCYTE# 0.6 X10e3 (0-1.0); MONOCYTE% 8.2 % (3.0-12.0); NEUTROPHIL% 50.7 % (40-75); PLATELET COUNT 171 X10e3 (140-420); RED BLOOD COUNT 4.29 X10e (3.90-5.60); RED CELL DISTRIBUTION WIDTH 13.2 % (11.0-15.5); WHITE BLOOD COUNT 7.9 X10e3 (4.0-10.5)
[2017-01-12 05:02] LABS: ALBUMIN SERUM 3.6 g/dL (3.5-5.0); BUN/CREATININE RATIO 7.77; CALCIUM SERUM 8.3 mg/dL (8.4-10.2); CREATININE SERUM 0.9 mg/dL (0.6-1.4); GLOM FILT RATE Estimated 114.2 mL/min (>60); MAGNESIUM 2.3 mg/dL (1.6-3.0); POTASSIUM 4.1 mmol/L (3.5-5.1)
[2017-01-13 05:08] LABS: HEMATOCRIT 42.1 % (38.0-50.0); MEAN CORPUSCULAR HEMOGLOBIN 31.9 PG (28-34); MEAN CORPUSCULAR HGB CONC 33.2 g/dL (30-36); MEAN PLATELET VOLUME 7.6 FL (6.5-11.5); RED BLOOD COUNT 4.38 X10e (3.90-5.60); RED CELL DISTRIBUTION WIDTH 13.1 % (11.0-15.5); WHITE BLOOD COUNT 8.5 X10e3 (4.0-10.5)
[2017-01-13 05:52] LABS: ALBUMIN SERUM 3.5 g/dL (3.5-5.0); BILIRUBIN,TOTAL 0.6 mg/dL (0.2-2.0); BUN/CREATININE RATIO 7.77; CALCIUM SERUM 8.4 mg/dL (8.4-10.2); CREATININE SERUM 0.9 mg/dL (0.6-1.4); GLOM FILT RATE Estimated 114.2 mL/min (>60); POTASSIUM 3.6 mmol/L (3.5-5.1); PROTEIN TOTAL SERUM 6.3 g/dL (6.0-8.3)
== END 2017-01-13 18:18 | DRG 918 ==
LOC: CED 10:38 → CEDOF 16:00 → C3A PCU 16:00 → CED 16:34 → CEDOF 16:34 → CICCU3 21:07 → C3A PCU 01-12 13:44
PROVIDERS: Family Medicine; Internal Medicine; Student in an Organized Health Care Education/Training Program
DX: T43.592A Poisoning by other antipsychotics and neuroleptics, intentional self-harm, initial encounter (principal); D68.51 Activated protein C resistance; I95.2 Hypotension due to drugs; Y92.009 Unspecified place in unspecified non-institutional (private) residence as the place of occurrence of the external cause; E87.6 Hypokalemia; F19.10 Other psychoactive substance abuse, uncomplicated; F17.210 Nicotine dependence, cigarettes, uncomplicated; F20.9 Schizophrenia, unspecified; F31.9 Bipolar disorder, unspecified; Z91.5 Personal history of self-harm; H51.8 Other specified disorders of binocular movement
CPT/HCPCS: 36415; 51702; 70450; 71010; 80048; 80053; 80076; 80307; 81003; 83735; 85025; 85027; 85610; 85730; 87040; 93005; 96361; 96374; 99285; C9113; G0480; J2405

== ENCOUNTER 2017-01-13 14:00 | Inpatient (IN) | payer OTHER ==
--- NOTE | ~2017-01-13 | PN ---
Unit #: [id number] #: [id number] Patient: SKINNY CARMICHAEL [id number] [facility] [address] [place] [address] [id number] I MR#: [id number] NAME: SKINNY CARMICHAEL ROOM: P181 Age: 31 Sex: M Admission Date: 01/13/2017 : 1985 Attending Physician: Mallory Jacobs M.D. Admitting Physician: Mallory Jacobs M.D. Primary Care Physician: Primary Care Physician Stella DAO PROGRESS NOTES DATE 01/15/2017 DISCUSSION Mr. Skinny Carmichael is a 31-year-old white male with substance abuse and mood disorder who was seen today and chart was reviewed and case was discussed with the staff. He has been anxious, withdrawn and seclusive to himself though he did receive his first loading dose of Invega Sustenna yesterday without any tolerability issues. Meanwhile, he has been taking the medications and has been requesting to get back on his Neurontin. MENTAL STATUS EXAMINATION Young white male who was casually dressed with fair personal hygiene and appears to be in no acute distress or discomfort. He was awake and alert on interaction with intact orientation. His mood was anxious with congruent affect. He reports having suicidal ideation but denies any homicidal ideation. His insight and judgement remains significantly impaired. TREATMENT PLAN 1. Will continue on his current medications and treatment protocol. Will monitor his response to medications and make further adjustments as needed. 2. Will continue to follow up. Dictated by... Joanne Santiago/santa TD: 01/15/2017 23:15 JOB #: [id number] Unit #: [id number] #: [id number] Patient: SKINNY CARMICHAEL SYLWIA PROGRESS NOTES Page 1 of 1 X Mallory Jacobs MD PROGRESS NOTE
--- NOTE | ~2017-01-13 | PN ---
Unit #: [id number] #: [id number] Patient: LAKSHMI CARMICHAEL [id number] [facility] [address] [place] [address] [id number] I MR#: [id number] NAME: LAKSHMI CARMICHAEL ROOM: P252 Age: 31 Sex: M Admission Date: 01/13/2017 : 1985 Attending Physician: Mallory Jacobs M.D. Admitting Physician: Mallory Jacobs M.D. Primary Care Physician: Primary Care Physician Stella DAO PROGRESS NOTES DATE OF SERVICE: 01/14/2017 SUBJECTIVE Mr. Carmichael is a 31-year-old white male, who was seen today and chart was reviewed and the case was discussed with the staff. He has been anxious, withdrawn, depressed and rather seclusive to himself. Meanwhile, he has been cooperative with the treatment recommendations and has been taking the medications and tolerating them fairly well. MENTAL STATUS EXAMINATION Young white male who was casually dressed with fair personal hygiene, appears to be in no acute distress or discomfort. He was awake and alert on interaction with intact orientation. His mood was anxious with a congruent affect. He reports having suicidal ideations, but denies any homicidal ideations. His insight and judgment remain significantly impaired. TREATMENT PLAN 1. We will recommend initiating long-acting injectable antipsychotic and since the patient has been on Risperdal we will consider initiating Invega Sustenna followed by discontinuing his oral Risperdal. 2. We will continue to follow up. Dictated by... Joanne Santiago/mary TD: 01/15/2017 23:41 JOB #: [id number] [facility] PROGRESS NOTES Page 1 of 1 X Mallory Jacobs MD X PROGRESS NOTE
--- NOTE | ~2017-01-13 | PN ---
Unit #: [id number] #: [id number] Patient: LAKSHMI CARMICHAEL [id number] [facility] [address] [place] [address] [id number] MR#: [id number] NAME: LAKSHMI CARMICHAEL ROOM: P252 Age: 31 Sex: M Admission Date: 01/13/2017 : 1985 Attending Physician: Mallory Jacobs M.D. Admitting Physician: Mallory Jacobs M.D. Primary Care Physician: Primary Care Physician Stella DAO PROGRESS NOTES DATE OF SERVICE: 01/17/2017 SUBJECTIVE Mr. Carmichael is a 31-year-old white male, who was seen today, and chart was reviewed, and case was discussed with the staff. He has been anxious, withdrawn, depressed, and rather seclusive to himself with blunted affect, minimal interaction, though has been calm and cooperative with treatment recommendations and has been taking the medications and tolerating them fairly with no reported side effects. MENTAL STATUS EXAMINATION Young white male, who is casually dressed with fair personal hygiene, appears to be in no acute distress or discomfort. He was awake and alert on interaction with intact orientation. His mood was anxious with a congruent affect. He denies any suicidal or homicidal ideations and also denies any auditory or visual hallucinations. His insight and judgment remain slightly impaired. TREATMENT PLAN 1. We will continue his current treatment protocol. We will monitor his response to medications and make further adjustments as needed. 2. We will continue to follow up. Dictated by... Joanne Santiago/mary TD: 01/17/2017 23:33 JOB #: [id number] [facility] PROGRESS NOTES Page 1 of 1 X Mallory Jacobs MD PROGRESS NOTE
--- NOTE | ~2017-01-13 | PA ---
Unit #: [id number] #: [id number] Patient: LAKSHMI PITT [id number] [facility] [address] [place] [address] [id number] I MR#: [id number] NAME: LAKSHMI PITT ROOM: P181 Age: 31 Sex: M Admission Date: 01/13/2017 : 1985 Date of Assessment: Attending Physician: Mallory Jacobs M.D. Admitting Physician: Mallory Jacobs M.D. Primary Care Physician: Primary Care Physician No PSYCHIATRIC ASSESSMENT IDENTIFYING DATA Mr. Pitt is a 31-year-old, single, white male, who is a resident of [place], [place], and was very well known to us from previous encounter, was transferred to us from [facility] on a voluntary basis. CHIEF COMPLAINT "I overdosed in a suicide attempt." HISTORY OF PRESENT ILLNESS Mr. Pitt is a 31-year-old white male with a history of mood disorder and psychosis, who was taken to [facility] Emergency Room with an overdose on 55 Risperdal in a suicide attempt and reports that he was discharged from [facility] on 01/03/2017 and he started going to [facility] instead of reporting to [facility] intensive outpatient treatment program. He reports that he was staying in a homeless prison and then his father let him move back in and he stated the stole Lortab from his father and took 10 of them on 01/09/2017 and reports then his father argued over the pain pills and reports that it felt like his father did not care and then he ended up overdosing in a suicide attempt. He does report some depression, anxiety, irritability, feelings of hopelessness and helplessness, and suicidal ideations and as such, recommendation for inpatient level of care for safety and stabilization was made. The patient was transferred to us. SUBSTANCE ABUSE HISTORY The patient has a history of alcohol, cannabis, opioids and amphetamine abuse. Recently, he stole his father's Lortab and took several of them at a time. PAST PSYCHIATRIC HISTORY The patient has had a history of multiple inpatient psychiatric hospitalizations at [facility] and has been diagnosed and treated for mood disorder and psychosis and review of the medical records indicate that he is supposed to be on a combination of psychotropic medications including Wellbutrin and Risperdal. PAST MEDICAL HISTORY The patient's medical history is significant for Factor V Leiden syndrome. ALLERGIES No known medication allergies. Unit #: [id number] #: [id number] Patient: LAKSHMI PITT PERSONAL AND SOCIAL HISTORY A 31-year-old white male, who reports that he is single, unemployed, and lives at home with his father and several other family members and has fairly decent social support system. MENTAL STATUS EXAMINATION Young white male, who was casually dressed with fair personal hygiene, appears to be in no acute distress or discomfort. He was awake and alert on interaction with intact orientation to time, place, and person. His mood was anxious and depressed with a congruent affect. His speech was slow and restricted in content. He reports having suicidal ideations, but denies any homicidal ideations, and also denies any auditory or visual hallucinations. His insight and judgment remain significantly impaired. DIAGNOSTIC IMPRESSION Psychiatric: 1. Schizoaffective disorder, bipolar type, most recent episode depressed, recurrent, moderate, with psychosis. 2. Opioid dependence, moderate. Medical: Factor V Leiden syndrome. Stressors: Moderate psychosocial stressors. TREATMENT PLAN 1. The patient has presented with a history of mood disorder and psychosis and has been decompensating and will need inpatient hospitalization for safety and stabilization. We will start him back on his home medications, though we will consider starting him on long-acting injectable Risperdal due to his history of poor compliance with medications and we will monitor his response to medications. We will monitor and make further adjustments as needed. 2. Supportive therapy was provided to the patient. 3. Safe, structured, and nourishing environment will be provided. ESTIMATED LENGTH OF STAY 5 to 7 days. ABILITY TO HELP SELF Limited. WILLINGNESS TO HELP SELF The patient appears to be willing to help self. STRENGTHS 1. Communicative. 2. Cooperative. PROBLEMS 1. Chronic dysphoric symptoms. 2. Poor social support system. DISCHARGE CRITERIA This will be contingent upon the patient's ability to show resolution of his depression and psychosis as well as his ability to stay safe to himself, particularly after discharge from the hospital. Dictated by... Unit #: [id number] #: [id number] Patient: LAKSHMI PITT M.D. IAA/mary TD: 01/14/2017 07:01 JOB #: [id number] PSYCHIATRIC ASSESSMENT Page 1 of 1 X Mallory Jacobs MD PSYCHIATRIC ASSESSMENT
--- NOTE | ~2017-01-13 | PN ---
Unit #: [id number] #: [id number] Patient: LAKSHMI PITT [id number] [facility] [address] [place] [address] [id number] I MR#: [id number] NAME: LAKSHMI PITT ROOM: P252 Age: 31 Sex: M Admission Date: 01/13/2017 : 1985 Attending Physician: Mallory Jacobs M.D. Admitting Physician: Mallory Jacobs M.D. Primary Care Physician: Stella Primary Care Physician [facility] PROGRESS NOTES DATE January 16. DISCUSSION Mr. Pitt is a 31-year-old, white male who was seen today and chart was reviewed. His case was discussed with the staff. He is doing fairly well. He appears to be showing improvement in mood and functioning and has been rather seclusive to himself and persistent minimal interaction, but he has not shown any agitation or aggression. He has been taking the medications and tolerating them fairly well. MENTAL STATUS EXAMINATION Young, white male who was casually dressed with a fair personal hygiene. Appears to be in no acute distress or discomfort. He was awake and alert on interaction with intact orientation. His mood is anxious with a congruent affect. He denies any suicidal or homicidal ideation. His insight and judgement remain slightly impaired. TREATMENT PLAN 1. Will continue his current treatment protocol. Will monitor his response to medications and make further adjustments as needed. 2. Continue to follow up. Dictated by... Joanne Santiago/taylor TD: 01/17/2017 12:49 JOB #: [id number] Unit #: [id number] #: [id number] Patient: LAKSHMI PITT [facility] PROGRESS NOTES Page 1 of 1 X Mallory Jacobs MD PROGRESS NOTE
--- NOTE | ~2017-01-13 | DS ---
Unit #: [id number] #: [id number] Patient: LAKSHMI PITT [id number] [facility] [address] [place] [address] [id number] MR#: [id number] NAME: LAKSHMI PITT ROOM: P252 Age: 31 Sex: M Admission Date: 01/13/2017 : 1985 Discharge Date: 01/22/2017 Attending Physician: Mallory Jacobs M.D. Primary Care Physician: Primary Care Physician No DISCHARGE SUMMARY IDENTIFYING DATA Mr. Pitt is a 31-year-old single white male who is a resident of [place], [place] and is very well known to us from previous encounter and was transferred to us from [facility]. DISCHARGE DIAGNOSES Psychiatric: Schizoaffective disorder, bipolar type, most recent episode depressed, recurrent, moderate, with psychosis; opioid dependence, moderate. Medical: Factor V Leiden syndrome. Stressors: Mild psychosocial stressors. HISTORY OF PRESENT ILLNESS Please see initial psychiatric evaluation for details. PAST PSYCHIATRIC HISTORY Please see initial psychiatric evaluation for details. PAST MEDICAL HISTORY Please see initial psychiatric evaluation for details. HOSPITAL COURSE The patient was admitted to the adult psychiatric unit at [facility] and was oriented to the hospital environment. Routine p.r.n. medications were initiated, and he was started back on his home medication due to his history of poor compliance with oral medications including particularly his Risperdal, it was decided that he would be a candidate for long-acting injectable antipsychotic and since he has not any tolerability issues to Risperdal, he was started on Invega Sustenna and was able to receive the first 2 loading doses here, followed by which it was decided that he will be discharged home and will continue treatment on an outpatient basis. DISCHARGE MEDICATIONS Invega Sustenna 156 mg intramuscular every 30 days. DISCHARGE CONDITION Stable. PROGNOSIS Fair. Dictated by... Unit #: [id number] #: [id number] Patient: LAKSHMI PITT Mallory Jacobs M.D. IAA/modl TD: 01/22/2017 22:45 JOB #: [id number] DISCHARGE SUMMARY Page 1 of 1 X Mallory Jacobs MD SUMMARY
--- NOTE | ~2017-01-13 | HP ---
Unit #: [id number] #: [id number] Patient: SKINNY CARMICHAEL [id number] [facility] [address] [place] [address] [id number] I MR#: [id number] NAME: SKINNY CARMICHAEL ROOM: P181 Age: 31 Sex: M Admission Date: 01/13/2017 : 1985 Attending Physician: Mallory Jacobs M.D. Admitting Physician: Mallory Jacobs M.D. Primary Care Physician: Primary Care Physician No HISTORY AND PHYSICAL HISTORY OF PRESENT ILLNESS Skinny is a 31 year old admitted to [facility] with depression after suicide attempt with an overdose of Wellbutrin. He was admitted to [facility] on 01/11/2017 and when medically stable transferred to [facility] for psychiatric care. The patient was seen and H & P from [facility] dated 01/11/2017 was reviewed. This is current. No changes. Please see H & P dated 01/11/2017. Dictated by... Kinza Trimble P.A.-C. for Joanne Steen/panfilo TD: 01/15/2017 00:15 JOB #: [id number] HISTORY AND PHYSICAL Page 1 of 1 X Kinza Trimble HISTORY AND PHYSICAL
[~2017-01-13 14:00] MED LIST: GABAPENTIN800 MG PO; LEXAPRO20 MG PO; PATIENT'S PHARMACY; RISPERIDONE PO
== END 2017-01-22 10:15 | DRG 885 ==
LOC: P1E 17:41 → P2L 17:41
DX: F31.5 Bipolar disorder, current episode depressed, severe, with psychotic features (principal); D68.51 Activated protein C resistance; F11.20 Opioid dependence, uncomplicated